=== PATIENT | female | born 1965 | race Caucasian/White ===

== ENCOUNTER → 2017-04-02 | Outpatient (CLI) | payer BC | LOC: MAMMO 09:54 | DX: Z12.31 Encounter for screening mammogram for malignant neoplasm of breast (principal) | CPT/HCPCS: G0202 ==

== ENCOUNTER → 2018-04-06 | Outpatient (CLI) | payer BC | LOC: MAMMO 15:04 | DX: Z12.31 Encounter for screening mammogram for malignant neoplasm of breast (principal) ==

== ENCOUNTER → 2019-05-03 | Outpatient (CLI) | payer BC | LOC: MAMMO 15:48 | DX: Z12.31 Encounter for screening mammogram for malignant neoplasm of breast (principal); N64.89 Other specified disorders of breast ==

== ENCOUNTER → 2019-05-09 | Outpatient (CLI) | payer BC | LOC: MAMMO 07:15 | DX: Z12.31 Encounter for screening mammogram for malignant neoplasm of breast (principal) ==

== ENCOUNTER → 2020-07-03 | Outpatient (CLI) | payer BC | LOC: MAMMO 15:56 | DX: Z12.31 Encounter for screening mammogram for malignant neoplasm of breast (principal) ==

== ENCOUNTER → 2021-07-01 | Outpatient (CLI) | payer BC | LOC: MAMMO 09:30 | DX: Z12.31 Encounter for screening mammogram for malignant neoplasm of breast (principal); N63.20 Unspecified lump in the left breast, unspecified quadrant ==

== ENCOUNTER → 2021-07-01 | Day surgery (SDC) | payer BC | END | disposition home or self-care (01) | LOC: MSO 09:30 | DX: D17.21 Benign lipomatous neoplasm of skin and subcutaneous tissue of right arm (principal); D17.22 Benign lipomatous neoplasm of skin and subcutaneous tissue of left arm ==

== ENCOUNTER → 2021-07-08 | Outpatient (CLI) | payer BC | LOC: RAD 06:57 | DX: N60.02 Solitary cyst of left breast (principal) ==

== ENCOUNTER → 2021-07-25 | Outpatient (CLI) | payer BC | LOC: RAD 13:00 | DX: N60.82 Other benign mammary dysplasias of left breast (principal); R92.0 Mammographic microcalcification found on diagnostic imaging of breast | CPT/HCPCS: 15989; 15990; A4648 ==

== ENCOUNTER → 2021-10-07 | Day surgery (SDC) | payer BC | LOC: MSO 07:35 | DX: D50.9 Iron deficiency anemia, unspecified (principal); K29.51 Unspecified chronic gastritis with bleeding; G25.81 Restless legs syndrome; F32.A Depression, unspecified; E66.9 Obesity, unspecified; Z79.899 Other long term (current) drug therapy | CPT/HCPCS: 00813; J2704; J3010; J7120 ==

== ENCOUNTER → 2022-07-22 | Outpatient (CLI) | payer BC | LOC: MAMMO 08:20 | DX: Z12.31 Encounter for screening mammogram for malignant neoplasm of breast (principal) ==

== ENCOUNTER → 2023-07-29 | Outpatient (CLI) | payer BC | LOC: MAMMO 08:30 | DX: Z12.31 Encounter for screening mammogram for malignant neoplasm of breast (principal) ==

== ENCOUNTER 2023-10-22 01:36 | Emergency (ER) | payer BC ==
[~2023-10-22] VITALS: Ht 182.9 cm; Wt 97.7 kg
[2023-10-22 01:57] LABS: BASO # 0.03 K/mm3 (0.02-0.10); EOS # 0.06 K/mm3 (0.04-0.40); EOS % 0.9 % (1.0-5.0); HEMATOCRIT 35.8 % (37.0-47.0); HEMOGLOBIN 11.8 g/dL (12.5-16.0); LYMPH# 2.74 K/mm3 (1.50-4.00); MEAN CELL VOLUME 90 fl (78-100); MEAN CORPUSCULAR HEMOGLOBIN 30 pg (27-31); MEAN CORPUSCULAR HGB CONC 33 g/dL (33-37); MEAN PLATELET VOLUME 8.9 fl (7.4-10.4); MONO # 0.46 K/mm3 (0.20-0.80); NEU # 3.38 K/mm3 (1.40-6.50); PLATELET COUNT 270 K/mm3 (130-400); RED BLOOD COUNT 3.99 M/mm3 (4.10-5.30); RED CELL DISTRIBUTION WIDTH 13.1 % (11.5-14.5); WHITE BLOOD COUNT 6.7 K/mm3 (4.8-10.8)
[2023-10-22 02:04] LABS: SODIUM 140 mmol/L (136-145)
[2023-10-22 02:06] LABS: CALCIUM 9.8 mg/dL (8.3-10.5)
[2023-10-22 02:07] LABS: GLUCOSE 141 mg/dL (65-105); TOTAL PROTEIN 6.4 g/dL (6.4-8.3)
[2023-10-22 02:08] LABS: CARBON DIOXIDE 25 mmol/L (22-29)
[2023-10-22 02:09] LABS: TOTAL BILIRUBIN 0.2 mg/dL (0.2-1.2)
[2023-10-22 02:12] LABS: AST-SGOT 19 U/L (5-34)
[2023-10-22 02:13] LABS: ALT/SGPT 22 U/L (0-55)
[2023-10-22 02:21] LABS: TROPONIN-I < 0.030 ng/mL (0.00-0.033)
[2023-10-22] MEDS ORDERED: CLARITIN-D 10 M1 T24 PO (02:24)
[2023-10-22] MEDS ORDERED: NATURAL IRON65 MG PO (02:25)
[2023-10-22] MEDS ORDERED: VITAMIN D31250 MC2 PO (02:26)
[2023-10-22] MEDS ORDERED: ROPINIROLE HCL1 MG PO (02:29)
[2023-10-22] MEDS ORDERED: ESCITALOPRAM10 MG PO (02:30)
[2023-10-22] MEDS ORDERED: SINGULAIR PO (02:31)
[2023-10-22] MEDS ORDERED: PROTONIX TR40 M1 (02:31)
[2023-10-22] MEDS ORDERED: SIMVASTATIN20 M1 PO (02:32)
[2023-10-22 03:24] LABS: URINE COLOR YELLOW (YELLOW)
[2023-10-22 03:25] LABS: URINE APPEARANCE CLOUDY (CLEAR); URINE BILIRUBIN 1+ (NEGATIVE); URINE GLUCOSE NEGATIVE (NEGATIVE); URINE KETONE TRACE (NEGATIVE); URINE PROTEIN(semi-quant) 2+ (NEGATIVE)
[2023-10-22 03:26] LABS: URINE BLOOD NEGATIVE (NEGATIVE); URINE LEUKOCYTE ESTERASE NEGATIVE (NEGATIVE); URINE NITRATE NEGATIVE (NEGATIVE)
[2023-10-22] MEDS ORDERED: TRAMADOL 50 MG TAB PO (05:08)
[2023-10-22 05:24] VITALS: BP 120/64
== END 2023-10-22 05:24 | disposition home or self-care (01) ==
LOC: ED 01:36
PROVIDERS: Nurse Practitioner
DX: S52.552A Other extraarticular fracture of lower end of left radius, initial encounter for closed fracture (principal); E86.0 Dehydration; R55 Syncope and collapse; W18.30XA Fall on same level, unspecified, initial encounter
CPT/HCPCS: J7030

== ENCOUNTER → 2024-07-22 | Outpatient (CLI) | payer BC ==
[~2024-07-22] MED LIST: CLARITIN-D 10 M1 T24 PO; ESCITALOPRAM10 MG PO; NATURAL IRON65 MG PO; PROTONIX TR40 M1; ROPINIROLE HCL1 MG PO; SIMVASTATIN20 M1 PO; SINGULAIR PO; TRAMADOL 50 MG TAB PO; VITAMIN D31250 MC2 PO
== END ==
LOC: MAMMO 08:30
DX: Z12.31 Encounter for screening mammogram for malignant neoplasm of breast (principal)